=== PATIENT | male | born 1965 | race African-American/Black ===

== ENCOUNTER 2022-07-21 14:34 | Outpatient (CLI) | payer OTHER | END 2022-07-21 14:35 | disposition home or self-care (01) | LOC: RAD-FRANK 14:34 | PROVIDERS: ATTEND Family Medicine | DX: M54.41 Lumbago with sciatica, right side (principal); M47.816 Spondylosis without myelopathy or radiculopathy, lumbar region | CPT/HCPCS: 72100 ==